=== PATIENT | female | born 1935 ===

== ENCOUNTER 2017-12-31 12:57 | Emergency (ER) | payer OTHER ==
[~2017-12-31] VITALS: Ht 157.5 cm; Wt 54.4 kg
[~2017-12-31 12:57] MED LIST: HYOSCYAMINE0.125 M1 SL; INTESTINEX680 MG PO; TRAM1TAB98 PO
== END 2017-12-31 17:59 | disposition home or self-care (01) ==
LOC: ER 12:57
DX: M79.662 Pain in left lower leg (principal); M79.89 Other specified soft tissue disorders